=== PATIENT | female | born 1960 | race Caucasian/White ===

== ENCOUNTER 2019-10-14 10:46 | Emergency (ER) | payer BC, OTHER, SELFPAY ==
[2019-10-14 11:05] VITALS: BP 172/89; PULSE 71; RESP 16; TEMP 37.2; O2SAT 100
--- NOTE | 2019-10-14 11:06 | ED.GENADULT ---
HPI - General Adult General Chief complaint: Upper Respiratory Infection Stated complaint: swollen gland Time Seen by Provider: 10/14/19 11:07 Source: patient and RN notes reviewed Mode of arrival: ambulatory Limitations: no limitations History of Present Illness HPI narrative: This is a 59 years old female presented office for evaluation of left facial pain for a couple day.Associated with feeling malaise, achy, and sinus congestion.She is here from [facility], supposed to return on Thursday.Denies sick contact. Denies dental pain, headache, dizziness, or vomiting.Try some Tylenol for her pain.Stated she cannot take any NSAIDs due to kidney concerns/GI related matter. Related Data Home Medications Medication Instructions Recorded Confirmed levothyroxine 88 mcg PO DAILY 10/14/19 10/14/19 Allergies Allergy/AdvReac Type Severity Reaction Status Date / Time cephalexin [From Keflex] Allergy Rash Verified 10/14/19 11:14 NSAIDS (Non-Steroidal Allergy Other Verified 10/14/19 11:14 Anti-Inflamma Penicillins Allergy Hives Verified 10/14/19 11:14 Review of Systems Review of Systems: Narrative: CONSTITUTIONAL: Denies fever, sweats. ENT: Reports a little sinus congestion. Denies sore throat or otalgia.Denies facial trauma or recent dental work-up. CARDIOVASCULAR: Denies chest pain RESPIRATORY: Denies dyspnea, wheezing. Reports cough at times when she takes a deep breathe GASTROINTESTINAL: Denies abdominal pain, nausea, vomiting, diarrhea. SKIN: Denies rash MUSCULOSKELETAL: Denies acute back pain NEUROLOGIC: Denies lightheaded PMFSH Past Medical History Medical History (Updated 10/14/19 @ 12:11 by RACHNA Yeboah) Hypothyroidism Plantar fasciitis Surgical History Surgical History (Updated 10/14/19 @ 11:27 by RACHNA Yeboah) H/O section Hx of cholecystectomy Hx of gastric bypass Hx of spinal surgery Social History Social History (Updated 10/14/19 @ 11:27 by RACHNA Yeboah) Smoking status: Never smoker Comments At time of signature, I agree with nursing past medical, surgical, social and family history. There is no relevant family history pertinent to the presenting complaint. Exam Narrative: Exam Narrative: GENERAL: This is a well-nourished, well-developed patient, in no apparent distress.No obvious facial swelling. EYES: Sclera clear/white. Vision is grossly intact. EARS: External ears normal, auditory canals clear and without drainage, TMs normal without perforation. Hearing grossly intact.Left TMJ tenderness with percussion.No trismus. NOSE: External nose normal with no obvious nasal discharge, nares without redness, no rhinorrhea. THROAT: Mucous membranes moist, posterior pharynx clear. NECK: Neck supple, non-tender without lymphadenopathy, masses or thyromegaly or lymphandenitis. CARDIOVASCULAR: Regular rate and rhythm without murmurs, gallops, or rubs. RESPIRATORY: Clear to auscultation. Breath sounds equal bilaterally. No wheezes, rales, or rhonchi. SKIN: warm, intact with no suspicious lesions or rash, good texture and turgor. NEURO: awake, alert, and oriented to person, place and time. There were no obvious focal neurologic abnormalities. Steady gait Melissa Coma Scale Eye Opening: Spontaneous 4 [place] Coma Scale Motor: Obeys Commands 6 [place] Coma Scale Verbal: Oriented 5 Course Vital Signs Vital signs: Vital Signs Temperature 98.9 F 10/14/19 11:05 Pulse Rate 71 10/14/19 11:05 Respiratory Rate 16 10/14/19 11:05 Blood Pressure 172/89 H 10/14/19 11:05 Pulse Oximetry 100 10/14/19 11:05 Temperature 98.9 F 10/14/19 11:05 Pulse Rate 71 10/14/19 11:05 Respiratory Rate 16 10/14/19 11:05 Blood Pressure 172/89 H 10/14/19 11:05 Pulse Oximetry 100 10/14/19 11:05 Medical Decision Making [facility] Narrative Medical decision making narrative: I offered steroids to reduce pain and inflammation, patient declined. Discharge ins
== END 2019-10-14 11:27 | disposition home or self-care (01) ==
PROVIDERS: Emergency Provider Nurse Practitioner
DX: K11.8 Other diseases of salivary glands (principal); R03.0 Elevated blood-pressure reading, without diagnosis of hypertension; E03.9 Hypothyroidism, unspecified; Z98.84 Bariatric surgery status
CPT/HCPCS: 99201; G0463